=== PATIENT | male | born 1945 | race Caucasian/White ===

== ENCOUNTER → 2018-04-12 | Outpatient (CLI) | payer MEDICARE, BC ==
[2018-04-12 16:41] LABS: Basophils # (A) 0.1 k/uL (0-0.2); Basophils % (A) 1 %; Eosinophils # (A) 0.4 k/uL (0-0.7); Eosinophils % (A) 3 %; HCT 48.9 % (39.0-53.0); HGB 15.2 gm/dL (13.0-17.5); Lymphocytes # (A) 2.7 k/uL (1.0-4.8); Lymphocytes % (A) 23 %; MCH 26.8 pg (25.0-35.0); MCHC 31.1 g/dL (31.0-37.0); MCV 86.4 fL (80.0-100.0); Mean Platelet Volume 7.3; Monocytes # (A) 0.8 k/uL (0-1.0); Monocytes % (A) 7 %; Neutrophils # (A) 7.8 k/uL (1.3-7.7); Neutrophils % (A) 66 %; Platelet Count 299 k/uL (150-450); RBC 5.66 m/uL (4.30-5.90); RDW 14.7 % (11.5-15.5)
[2018-04-12 16:58] LABS: ALT 24 U/L (21-72); AST 15 U/L (17-59); Albumin 3.7 g/dL (3.5-5.0); Albumin/Globulin Ratio 1.4; Alkaline Phosphatase 70 U/L (38-126); Anion Gap 8 mmol/L; Blood Urea Nitrogen 18 mg/dL (9-20); Calcium 9.8 mg/dL (8.4-10.2); Carbon Dioxide 29 mmol/L (22-30); Chloride 104 mmol/L (98-107); Globulin 2.6 g/dL; Glucose 90 mg/dL (74-99); Sodium 141 mmol/L (137-145); Total Bilirubin 0.5 mg/dL (0.2-1.3); Total Protein 6.3 g/dL (6.3-8.2)
[2018-04-12 17:15] LABS: T4, Free (Free Thyroxine) 1.13 ng/dL (0.78-2.19)
== END | disposition home or self-care (01) ==
LOC: LABWHC1 14:56
PROVIDERS: ATTEND Family Medicine
DX: I48.91 Unspecified atrial fibrillation (principal)
CPT/HCPCS: 36415; 80053; 84439; 84443; 85025

== ENCOUNTER → 2018-04-27 | Outpatient (CLI) | payer MEDICARE, BC ==
--- NOTE | 2018-04-27 14:02 | ECHOF ---
Referral Reason:Afib MEASUREMENTS -------- HEIGHT: 170.2 cm WEIGHT: 190.5 kg BP: RVIDd: 2.8 cm (< 3.3) IVSd: 1.6 cm (0.6 - 1.1) LVIDd: 4.4 cm (3.9 - 5.3) LVPWd: 1.8 cm (0.6 - 1.1) IVSs: 1.9 cm LVIDs: 3.5 cm LVPWs: 1.8 cm LA Diam: 3.7 cm (2.7 - 3.8) Ao Diam: 3.9 cm (2.0 - 3.7) AV Cusp: 2.4 cm (1.5 - 2.6) LA Diam: 4.4 cm (2.7 - 3.8) MV EXCURSION: 22.414 mm (> 18.000) MV EF SLOPE: 174 mm/s (70 - 150) EPSS: 1.5 cm MV E Nilay: 0.54 m/s MV DecT: 153 ms MV A Nilay: 0.31 m/s MV E/A Ratio: 1.73 MORBID OBESITY FINDINGS -------- Undetermined rhythm. Morbid Obesity The left ventricular size is normal. There is moderate concentric left ventricular hypertrophy. O verall left ventricular systolic function is low-normal with, an EF between 50 - 55 %. The right ventricle is normal in size. The left atrial size is normal. The right atrial size is normal. There is mild aortic valve sclerosis. There is no evidence of aortic regurgitation. Mild mitral annular calcification present. Mild mitral regurgitation is present. No regurgitation noted Unable to estimate RVSP due to inadequate TR jet spectral doppler profile. The pulmonic valve was not well visualized. Echo free space indicative of a pericardial fat pad. CONCLUSIONS -------- 1. Morbid Obesity 2. The left ventricular size is normal. 3. There is moderate concentric left ventricular hypertrophy. 4. Overall left ventricular systolic function is low-normal with, an EF between 50 - 55 %. 5. The right ventricle is normal in size. 6. The left atrial size is normal. 7. The right atrial size is normal. 8. There is mild aortic valve sclerosis. 9. Mild mitral annular calcification present. 10. Mild mitral regurgitation is present. 11. No regurgitation noted 12. Unable to estimate RVSP due to inadequate TR jet spectral doppler profile. 13. The pulmonic valve was not well visualized. 14. Echo free space indicative of a pericardial fat pad. DATABASE DEVELOPMENT PROJECT MANAGER: Haylee Beck RDCS
== END | disposition home or self-care (01) ==
LOC: RADECHMAIN 08:01
PROVIDERS: ATTEND Family Medicine
DX: I08.0 Rheumatic disorders of both mitral and aortic valves (principal); E66.01 Morbid (severe) obesity due to excess calories
CPT/HCPCS: 93306

== ENCOUNTER → 2018-06-05 | Outpatient (CLI) | payer MEDICARE, BC ==
[2018-06-05 15:09] LABS: HCT 47.5 % (39.0-53.0); HGB 14.6 gm/dL (13.0-17.5); MCH 26.1 pg (25.0-35.0); MCHC 30.7 g/dL (31.0-37.0); Platelet Count 332 k/uL (150-450); RBC 5.58 m/uL (4.30-5.90); RDW 14.5 % (11.5-15.5); WBC 8.2 k/uL (3.8-10.6)
[2018-06-05 15:28] LABS: Anion Gap 6 mmol/L; Blood Urea Nitrogen 14 mg/dL (9-20); Carbon Dioxide 30 mmol/L (22-30); Chloride 104 mmol/L (98-107); Sodium 140 mmol/L (137-145)
== END ==
LOC: LABPAT 14:10
PROVIDERS: ATTEND Internal Medicine Interventional Cardiology
DX: Z01.812 Encounter for preprocedural laboratory examination (principal); I10 Essential (primary) hypertension; R06.02 Shortness of breath
CPT/HCPCS: 36415; 80051; 82565; 84520; 85027

== ENCOUNTER 2018-06-12 05:54 | Day surgery (SDC) | payer MEDICARE, BC ==
[2018-05-31 09:24] VITALS: BMI 57.7
[2018-06-12] MEDS ORDERED: SODIUM CHLORIDE 0.9% 1,000 ML IV SCH ×2 (06:02→07:45)
[2018-06-12] MEDS ORDERED: SODIUM CHLORIDE 0.9% 500 ML 500 ML IV ONE (06:13)
[2018-06-12 06:35] VITALS: TEMP 98
[2018-06-12] MEDS ORDERED: PROPOFOL 10 MG/ML 20 ML VIAL IV ONE (07:09)
[2018-06-12] MEDS: BENZOCAINE SPRAY 1 CAN MUCOUS MEM ONE ×2 (07:16→07:21)
--- NOTE | 2018-06-12 07:53 | ECHOT ---
TRANSESOPHAGEAL ECHOCARDIOGRAM INDICATION: Evaluation of left atrial appendage. PROCEDURE: After explaining the procedure to the patient, its risks and complications, his blood pressure, heart rate, O2 saturation was monitored. The throat was sprayed with Cetacaine, he received sedation per Anesthesia Department. The probe was introduced in the esophagus without difficulty, images were obtained, following that the probe was removed, there was no immediate complication. FINDINGS: The left atrial upper size is normal. Left atrial appendage is normal. Left ventricular size and systolic function normal. The aortic valve, mitral valve and tricuspid valve are normal. Descending thoracic aorta appears to be normal. There was no pericardial effusion. Contrast bubble study revealed no evidence of shunting across the interatrial septum. Doppler pulse wave and color Doppler obtained, revealed mild mitral and tricuspid regurgitation with trace pulmonic regurgitation. There was no shunting by color Doppler study. CONCLUSION: 1. Normal left ventricular size and systolic function. 2. Normal appearance of left atrial appendage. 3. Mild mitral, tricuspid with trace pulmonic regurgitation. 4. Normal appearance of the descending thoracic aorta. 5. No pericardial effusion. MMODL / IJN: [id number] /
[2018-06-12 07:56] VITALS: RESP 18
--- NOTE | 2018-06-12 08:23 | CE ---
CARDIAC ELECTROPHYSIOLOGY REPORT CARDIOVERSION PROCEDURE NOTE: INDICATION: Atrial fibrillation. PROCEDURE: After explaining the procedure to the patient, its risks and complication, his blood pressure, O2 saturation were monitored. After performing transesophageal echocardiogram, obtaining a sedated state, a synchronized biphasic cardioversion using 200 joule, 300 joules and 360 joules were performed with inability to restore normal sinus rhythm. There was no immediate complication. KARL / REGINALDON: [id number] /
[2018-06-12] MEDS ORDERED: METOPROLOL TARTRATE 50 MG TAB PO SCH (09:00)
[2018-06-12 09:45] VITALS: BP 118/57; PULSE 87
[2018-06-12] MEDS ORDERED: LISINOPRIL 5 MG TAB PO SCH (21:00)
[2018-06-12] MEDS ORDERED: TAMSULOSIN 0.4 MG CAP.ER.24H PO SCH (21:00)
[2018-06-12] MEDS ORDERED: RIVAROXABAN 20 MG TAB PO SCH (21:00)
== END 2018-06-12 09:35 | disposition home or self-care (01) ==
LOC: CATHCVL 05:54
PROVIDERS: ATTEND Internal Medicine Interventional Cardiology
DX: I48.1 Persistent atrial fibrillation (principal); I08.1 Rheumatic disorders of both mitral and tricuspid valves; I10 Essential (primary) hypertension; G47.33 Obstructive sleep apnea (adult) (pediatric); Z79.01 Long term (current) use of anticoagulants; Z72.0 Tobacco use; Z79.899 Other long term (current) drug therapy; E66.9 Obesity, unspecified; Z68.43 Body mass index [BMI] 50.0-59.9, adult; Z96.653 Presence of artificial knee joint, bilateral
CPT/HCPCS: 93312; 93320; 93325; 92960; J2704

== ENCOUNTER → 2018-12-24 | Outpatient (CLI) | payer MEDICARE, BC ==
[2018-12-24 15:16] LABS: Appearance,Urine Clear (Clear); Bilirubin,Urine Negative (Negative); Blood,Urine Negative (Negative); Color,Urine Yellow; Glucose,Urine (UA) Negative (Negative); Ketones,Urine Negative (Negative); Leukocyte Esterase,Urine Negative (Negative); Nitrite,Urine Negative (Negative); Protein,Urine Trace (Negative); Specific Gravity,Urine 1.021 (1.001-1.035)
== END | disposition home or self-care (01) ==
LOC: LABWHC1 08:57
PROVIDERS: ATTEND Urology
DX: C61 Malignant neoplasm of prostate (principal)
CPT/HCPCS: 36415; 81003; 84153

== ENCOUNTER → 2018-12-27 | Outpatient (CLI) | payer MEDICARE, BC | END | disposition home or self-care (01) | LOC: LABWHC1 09:20 | PROVIDERS: ATTEND Urology | DX: C61 Malignant neoplasm of prostate (principal) | CPT/HCPCS: 36415; 84153 ==

== ENCOUNTER → 2019-08-13 | Outpatient (CLI) | payer MEDICARE, BC ==
[2019-08-13 17:20] LABS: African American GFR (CKD) 86.2 (60.0-200.0); Albumin 3.8 g/dL (3.80-4.90); Albumin/Globulin Ratio 2.11 (1.60-3.17); Anion Gap 4.8 mmol/L (4.00-12.00); Carbon Dioxide 30.2 mmol/L (21.6-31.8); Chol/HDL Ratio 2.96; Globulin 1.8 g/dL (1.6-3.3); LDL Cholesterol,Calculated 83.8 mg/dL (0.0-131.0); Non-African American GFR(CKD) 74.3 (60.0-200.0); Potassium 4.8 mmol/L (3.5-5.5); Total Bilirubin 0.7 mg/dL (0.2-1.2); Total Protein 5.6 g/dL (6.2-8.2); VLDL Calculation 10.2 mg/dL (5.00-40.00)
== END | disposition home or self-care (01) ==
LOC: LABWHC1 08:07
PROVIDERS: ATTEND Internal Medicine Interventional Cardiology
DX: R97.20 Elevated prostate specific antigen [PSA] (principal); E78.2 Mixed hyperlipidemia; I10 Essential (primary) hypertension
CPT/HCPCS: 36415; 80053; 80061; 84153

== ENCOUNTER → 2020-05-26 | Outpatient (CLI) | payer MEDICARE, BC ==
[2020-05-26 20:30] LABS: African American GFR (CKD) 62.7 (60.0-200.0); Albumin 3.9 g/dL (3.80-4.90); Albumin/Globulin Ratio 2.05 (1.60-3.17); Anion Gap 8.5 mmol/L (4.00-12.00); BUN/Creat Ratio 16.15 Ratio (12.00-20.00); Calcium 9.7 mg/dL (8.7-10.3); Carbon Dioxide 29.5 mmol/L (21.6-31.8); Globulin 1.9 g/dL (1.6-3.3); Non-African American GFR(CKD) 54.1 (60.0-200.0); Potassium 4.8 mmol/L (3.5-5.5); Total Bilirubin 0.6 mg/dL (0.2-1.2); Total Protein 5.8 g/dL (6.2-8.2)
[2020-05-26 20:51] LABS: Prostate Specific Antigen 15.2 ng/mL (0.0-6.5)
== END | disposition home or self-care (01) ==
LOC: LABWHC1 09:52
PROVIDERS: ATTEND Internal Medicine Interventional Cardiology
DX: C61 Malignant neoplasm of prostate (principal); R06.02 Shortness of breath
CPT/HCPCS: 36415; 80053; 83880; 84153

== ENCOUNTER → 2020-06-17 | Outpatient (CLI) | payer MEDICARE, BC ==
[2020-06-17 17:51] LABS: African American GFR (CKD) 62.3 (60.0-200.0); Anion Gap 9.6 mmol/L (4.00-12.00); BUN/Creat Ratio 11.54 Ratio (12.00-20.00); Calcium 9.5 mg/dL (8.7-10.3); Carbon Dioxide 26.4 mmol/L (21.6-31.8); Non-African American GFR(CKD) 53.8 (60.0-200.0); Potassium 4.6 mmol/L (3.5-5.5)
== END | disposition home or self-care (01) ==
LOC: LABWHC1 09:09
PROVIDERS: ATTEND Nurse Practitioner Adult Health
DX: R60.0 Localized edema (principal)
CPT/HCPCS: 36415; 80048

== ENCOUNTER → 2021-05-20 | Outpatient (CLI) | payer MEDICARE, BC ==
[2021-05-20 16:11] LABS: African American GFR (CKD) 79.7 (60.0-200.0); Anion Gap 8.8 mmol/L (10.00-18.00); BUN/Creat Ratio 14.62 Ratio (12.00-20.00); Blood Urea Nitrogen 15.5 mg/dL (9.0-27.0); Calcium 9.6 mg/dL (8.7-10.3); Non-African American GFR(CKD) 68.8 (60.0-200.0); Potassium 4.3 mmol/L (3.5-5.5)
== END | disposition home or self-care (01) ==
LOC: LABWHC1 08:42
PROVIDERS: ATTEND Nurse Practitioner Adult Health
DX: I10 Essential (primary) hypertension (principal); I48.19 Other persistent atrial fibrillation
CPT/HCPCS: 36415; 80048

== ENCOUNTER → 2024-01-04 | Outpatient (CLI) | payer MEDICARE ==
[2024-01-04 12:11] LABS: African American GFR (CKD) >90 (>60 ml/min/1.73 sqM); Blood Urea Nitrogen 14 mg/dL (9-20); Non-African American GFR(CKD) 79 (>60 ml/min/1.73 sqM)
--- NOTE | 2024-01-04 13:44 | CT ---
EXAMINATION TYPE: CT abdomen pelvis w con CT DLP: 3765.20 mGycm, Automated exposure control for dose reduction was used. DATE OF EXAM: 01/04/2024 1:24 PM COMPARISON: None CLINICAL INDICATION:Male, 78 years old with history of C61 PROSTATE CA; PROSTATE CA TECHNIQUE: Standard CT of the abdomen and pelvis following the administration of 100 cc of Isovue 3 00 IV contrast material and oral contrast. Coronal and sagittal reformats were performed. FINDINGS: Limited examination due to patient body habitus. LOWER CHEST: Posterior dependent subsegmental atelectasis is noted within the left lung base. Mild ca rdiomegaly. ABDOMEN LIVER: Unremarkable GALLBLADDER AND BILE DUCTS: Unremarkable. PANCREAS: Unremarkable. SPLEEN: Unremarkable. ADRENAL GLANDS: Unremarkable. KIDNEYS AND URETERS: No evidence of hydronephrosis or renal calculus. The kidneys enhance symmetrical ly. Contrast is demonstrated within both collecting systems on the delayed phase. PELVIS BLADDER: Unremarkable REPRODUCTIVE: Prostate is enlarged in size measuring 6.0 cm in transverse dimension. Few punctate luis fernando tral calcifications identified. The seminal vesicles appear symmetric. ABDOMEN & PELVIS STOMACH AND BOWEL: Stomach and duodenum are unremarkable. No focal bowel wall thickening or stranding inflammatory changes. Enteric contrast reaches the splenic flexure. No evidence of bowel obstruction . PERITONEUM: No evidence of pneumoperitoneum or free fluid. VASCULATURE: No evidence of aortic aneurysm. MUSCULOSKELETAL: No acute osseous abnormalities. No suspicious osseous lesion. Multilevel degenerativ e disc disease. LYMPH NODES: No evidence for lymphadenopathy. SOFT TISSUE/ABDOMINAL WALL: Unremarkable IMPRESSION: Limited examination due to patient's body habitus. 1. No CT evidence for metastatic disease. 2. Prostatomegaly. [facility], , 01/04/2024 1:42 PM
== END | disposition home or self-care (01) ==
LOC: RADCTMAIN 11:16
PROVIDERS: ATTEND Urology
CPT/HCPCS: 36415; 74177; 82565; 84520

== ENCOUNTER → 2024-02-15 | Outpatient (CLI) | payer MEDICARE ==
--- NOTE | 2024-02-15 13:54 | NM ---
INDICATION: Patient age:Male; 78 years old; Reason for study: C61 PROSTATE CANCER; [facility]. COMPARISON: CT abdomen and pelvis 01/04/2024. TECHNIQUE: Intravenous administration of 25.5 mCi of Technetium 99m-hydroxydiphosphonate followed by multiple scintigraphic images of the appendicular and axial skeleton. FINDINGS: Focal increased uptake within the right maxilla. Focal uptake identified within the right first MTP joint. Additional uptake identified within the lef t mid foot. These are favored to be degenerative changes. There is increased uptake within the bilateral shoulder, sternoclavicular, and sacroiliac joints con sistent with degenerative changes. No other photopenic areas or areas of increased activity are ident ified. No significant focal uptake identified within the spine. Physiologic radiotracer activity is demonstrated in the bladder. IMPRESSION: 1. Focal increased uptake within the right maxilla which could represent periodontal disease with me tastasis not entirely excluded. Consider further evaluation with CT facial bones as clinically indica natalio. 2. No other suspicious radiotracer uptake to suggest metastasis. [facility], , 02/15/2024 1:52 PM
== END | disposition home or self-care (01) ==
LOC: RADNMMAIN 07:11
PROVIDERS: ATTEND Urology
DX: C61 Malignant neoplasm of prostate (principal)
CPT/HCPCS: 78306; A9503